=== PATIENT | female | born 1990 | race Caucasian/White ===

== ENCOUNTER 2017-08-15 12:01 | Emergency (ER) | payer OTHER | END 2017-08-15 12:34 | disposition home or self-care (01) | LOC: ERS 12:01 | DX: F12.10 Cannabis abuse, uncomplicated (principal); J06.9 Acute upper respiratory infection, unspecified; F41.9 Anxiety disorder, unspecified; F32.9 Major depressive disorder, single episode, unspecified; F17.210 Nicotine dependence, cigarettes, uncomplicated; Z71.6 Tobacco abuse counseling | CPT/HCPCS: 99406 ==

== ENCOUNTER 2020-02-25 21:01 | Emergency (ER) | payer OTHER ==
[2020-02-25 22:33] LABS: Bilirubin Negative (Negative); Blood, Urine Negative (Negative); Clarity Turbid (Clear); Glucose, Urine (Dipstick) Normal (Negative); Ketone, Urine Negative (Negative); Leukocyte 75 Leu/uL (Negative); Nitrite Negative (Negative); Protein, Urine (Dipstick) 20 mg/dL (Neg-Trace); RBC/HPF 0-3 HPF (0-3); Specific Gravity, Urine 1.031 (1.002-1.036); Urobilinogen Normal mg/dL (Less than 2); pH, Urine 5.5 (5.0-9.0)
[2020-02-25 22:34] LABS: Bacteria/HPF 2+ HPF (None Seen)
[2020-02-26 09:06] LABS: SARS-CoV-2 MS2 Positive; SARS-CoV-2 N Gene Negative; SARS-CoV-2 S Gene Negative; SARS-CoV-2 by NAA Not Detected (NotDetected); SARS-CoV-2 orf1ab Negative
== END 2020-02-25 22:54 | disposition home or self-care (01) ==
LOC: ERS 21:01
DX: N39.0 Urinary tract infection, site not specified (principal); Z20.828 Contact with and (suspected) exposure to other viral communicable diseases; F41.9 Anxiety disorder, unspecified; F32.9 Major depressive disorder, single episode, unspecified; F17.210 Nicotine dependence, cigarettes, uncomplicated
CPT/HCPCS: 81003; 81015; 87635; 99283; U0003

== ENCOUNTER 2020-07-13 13:36 | Emergency (ER) | payer OTHER ==
[2020-07-13] MEDS ORDERED: Acetaminophen 500 MG TAB ONE (15:52)
== END 2020-07-13 15:55 | disposition home or self-care (01) ==
LOC: ERS 13:36
DX: L55.0 Sunburn of first degree (principal); F17.210 Nicotine dependence, cigarettes, uncomplicated
CPT/HCPCS: 99281

== ENCOUNTER 2021-06-17 13:13 | Emergency (ER) | payer OTHER ==
[2021-06-17 13:52] LABS: #Basophils 0.1 thou/uL (0.0-0.2); #Eosinphils 0.2 thou/uL (0.0-0.7); #Lymphocytes 2.3 thou/uL (1.20-3.40); #Monocytes 0.4 thou/uL (0.11-0.59); #Neutrophils 3.1 thou/uL (1.40-6.50); %Basophils 1.4 % (0.0-1.0); %Eosinophils 3.8 % (0.0-10.0); %Lymphocytes 36.7 % (21.0-51.0); %Monocytes 7.2 % (0.0-10.0); %Neutrophils 50.9 % (42.0-75.0); Mean Corpuscular HGB CONC 34.3 g/dL (32.0-36.0); Mean Corpuscular Hemoglobin 32.9 pg (27.0-31.0); Mean Platelet Volume 8.1 fL (7.4-10.4); Platelet Count 253 thou/uL (130-400); RBC Distribution Width 10.9 % (11.5-14.5); Red Blood Cell (RBC) Count 3.64 mill/uL (4.20-5.40); White Blood Cell (WBC) Count 6.1 thou/uL (4.8-10.8)
[2021-06-17 14:18] LABS: ALT (SGPT) 14 U/L (8-55); AST (SGOT) 15 U/L (5-34); Albumin 4.1 g/dL (3.5-5.0); Alkaline Phosphatase 69 U/L (40-110); Anion Gap 15 mmol/L (10-20); BUN (Urea Nitrogen) 10 mg/dL (7.0-18.7); Bilirubin, Total 0.5 mg/dL (0.2-1.2); Calc. Creatinine Clearance 0 mL/min (70-130); Calcium 9.1 mg/dL (7.8-10.44); Carbon Dioxide 20 mmol/L (22-29); Chloride 107 mmol/L (98-107); Globulin 2.8 g/dL (2.4-3.5); Glucose 110 mg/dL (70-105); Potassium 3.8 mmol/L (3.5-5.1); Protein, Total 6.9 g/dL (6.0-8.3); Sodium 138 mmol/L (136-145)
[2021-06-17] MEDS ORDERED: Ketorolac Tromethamine 30 MG/ML VIAL ONE ×2 (15:10→17:25)
== END 2021-06-17 17:41 | disposition short-term general hospital (02) ==
LOC: ERS 13:13
DX: O26.899 Other specified pregnancy related conditions, unspecified trimester (principal); R10.30 Lower abdominal pain, unspecified; O99.330 Smoking (tobacco) complicating pregnancy, unspecified trimester; F17.210 Nicotine dependence, cigarettes, uncomplicated; Z3A.00 Weeks of gestation of pregnancy not specified
CPT/HCPCS: 74177; 80053; 84702; 85025; 96374; 96376; J1885

== ENCOUNTER 2022-06-08 22:56 | Emergency (ER) | payer OTHER | END 2022-06-09 00:55 | disposition home or self-care (01) | LOC: ERS 22:56 | DX: K02.9 Dental caries, unspecified (principal); F17.290 Nicotine dependence, other tobacco product, uncomplicated | CPT/HCPCS: 99282 ==

== ENCOUNTER 2022-08-14 02:47 | Observation (INO) | payer OTHER ==
[2022-08-14 03:29] LABS: #Basophils 0.1 thou/uL (0.0-0.2); #Eosinphils 0.5 thou/uL (0.0-0.7); #Monocytes 0.5 thou/uL (0.11-0.59); %Basophils 0.7 % (0.0-1.0); %Eosinophils 6.7 % (0.0-10.0); %Lymphocytes 44.9 % (21.0-51.0); %Neutrophils 40.6 % (42.0-75.0); Hemoglobin 11.7 g/dL (12.0-16.0); Mean Corpuscular HGB CONC 32.5 g/dL (32.0-36.0); Mean Corpuscular Hemoglobin 30.1 pg (27.0-31.0); Mean Corpuscular Volume 92.5 fl (78.0-98.0); Mean Platelet Volume 10.8 fL (7.4-10.4); Platelet Count 288 10x3/uL (130-400); RBC Distribution Width 11.9 % (11.5-14.5); Red Blood Cell (RBC) Count 3.89 mill/uL (4.20-5.40); White Blood Cell (WBC) Count 7.3 10x3/uL (4.8-10.8)
[2022-08-14 03:44] LABS: INR-International Normal Ratio 0.9; PTT 34.2 sec (22.9-36.1); Prothrombin Time 12.3 sec (12.0-14.7)
[2022-08-14] MEDS ORDERED: Aspirin Chewable 81 MG TAB ONE (03:46)
[2022-08-14 03:53] LABS: ALT (SGPT) 9 U/L (8-55); AST (SGOT) 12 U/L (5-34); Albumin 4.1 g/dL (3.5-5.0); Alkaline Phosphatase 83 U/L (40-110); Anion Gap 13 mmol/L (10-20); BUN (Urea Nitrogen) 15 mg/dL (7.0-18.7); Bilirubin, Total 0.3 mg/dL (0.2-1.2); CK (CPK) 82 U/L (29-168); Calc. Creatinine Clearance 0 mL/min (70-130); Calcium 9.2 mg/dL (7.8-10.44); Carbon Dioxide 22 mmol/L (22-29); Chloride 106 mmol/L (98-107); Estimated GFR 97; Globulin 2.8 g/dL (2.4-3.5); Glucose 98 mg/dL (70-105); Potassium 3.2 mmol/L (3.5-5.1); Protein, Total 6.9 g/dL (6.0-8.3); Sodium 138 mmol/L (136-145)
[2022-08-14 04:30] LABS: Bacteria/HPF None Seen HPF (None Seen); Bilirubin Negative (Negative); Blood, Urine Negative (Negative); Clarity Clear (Clear); Glucose, Urine (Dipstick) Normal (Negative); Ketone, Urine Negative (Negative); Leukocyte 75 Leu/uL (Negative); Nitrite Negative (Negative); Protein, Urine (Dipstick) Negative (Neg-Trace); Urobilinogen Normal mg/dL (Less than 2); pH, Urine 5.5 (5.0-9.0)
[2022-08-14 04:31] LABS: Specific Gravity, Urine 1.055 (1.002-1.036)
[2022-08-14 04:33] LABS: Amphetamine Not Detected (NotDetected); Barbiturates Screen Not Detected (NotDetected); Benzodiazepine Screen Not Detected (NotDetected); Cocaine Metabolite Screen Detected (NotDetected); Methadone Not Detected (NotDetected); Methamphetamine Not Detected (NotDetected); Opiate Screen Detected (NotDetected); Oxycodone Screen Not Detected (NotDetected); Phencyclidine (PCP) Not Detected (NotDetected); THC/Cannabinoid Screen Detected (NotDetected); Tricyclic Screen Not Detected (NotDetected)
[2022-08-14] MEDS ORDERED: Ondansetron PF 4 MG/2 ML Vial IVP PRN (05:00)
[2022-08-14] MEDS ORDERED: Ondansetron ODT 4 MG TAB SL PRN (05:00)
[2022-08-14 05:01] LABS: Acetaminophen Less than 10.0 mcg/mL (10.0-30.0); Alcohol Less than 10 mg/dL (Less than 10); Salicylate Less than 8.0 mg/dL (15.0-30.0)
[2022-08-14 06:19] VITALS: BMI 32.0
[2022-08-14] MEDS ORDERED: Potassium Chloride 20 MEQ TAB PO SCH ×2 (07:00→13:45)
[2022-08-14 07:47] LABS: Hemoglobin A1c 4.8 % (4.0-6.0)
[2022-08-14] MEDS ORDERED: Mag-Al Plus 1200 MG/1200 MG/120 MG/30 ML UDCUP PO SCH (08:00)
[2022-08-14] MEDS ORDERED: Potassium Bicarbonate/Cit Ac 20 MEQ TAB PO SCH (08:00)
[2022-08-14 08:19] LABS: Cardiac Risk 2.4 (Less than 4.5); Cholesterol 142 mg/dl (< 200 Desired); HDL Cholesterol 60 mg/dL (>60 Neg Risk); LDL Cholesterol, Calculated 69 mg/dL; Magnesium 1.9 mg/dL (1.6-2.6); Triglycerides 63 mg/dL (Less than 150)
[2022-08-14] MEDS ORDERED: Iopamidol-370 76% 500 ML MDV (1 ML CHARGE) ONE (08:54)
[2022-08-14] MEDS ORDERED: Aspirin 325 MG TAB PO SCH (09:00)
[2022-08-14 17:07] LABS: Prothrombin Time 13.6 sec (12.0-14.7)
[2022-08-14 17:09] LABS: D-Dimer Test 0.37 *mcg/mL (0.27-0.43)
[2022-08-15 05:26] LABS: #Eosinphils 0.4 thou/uL (0.0-0.7); #Monocytes 0.6 thou/uL (0.11-0.59); #Neutrophils 3.8 thou/uL (1.40-6.50); %Basophils 0.5 % (0.0-1.0); %Eosinophils 5.5 % (0.0-10.0); %Monocytes 8.2 % (0.0-10.0); %Neutrophils 49.7 % (42.0-75.0); Mean Corpuscular HGB CONC 32.7 g/dL (32.0-36.0); Mean Corpuscular Hemoglobin 30.9 pg (27.0-31.0); Mean Corpuscular Volume 94.6 fl (78.0-98.0); Platelet Count 285 10x3/uL (130-400); RBC Distribution Width 11.9 % (11.5-14.5); Red Blood Cell (RBC) Count 3.88 mill/uL (4.20-5.40); White Blood Cell (WBC) Count 7.6 10x3/uL (4.8-10.8)
[2022-08-15 05:59] LABS: Anion Gap 12 mmol/L (10-20); BUN (Urea Nitrogen) 16 mg/dL (7.0-18.7); Calc. Creatinine Clearance 124 mL/min (70-130); Calcium 9.5 mg/dL (7.8-10.44); Carbon Dioxide 22 mmol/L (22-29); Chloride 106 mmol/L (98-107); Estimated GFR 93; Glucose 86 mg/dL (70-105); Magnesium 2.2 mg/dL (1.6-2.6); Potassium 3.9 mmol/L (3.5-5.1); Sodium 136 mmol/L (136-145)
[2022-08-15] MEDS: Acetaminophen 325 MG TAB PO PRN ×2 (06:07→22:17)
[2022-08-15] MEDS ORDERED: Aspirin 81 mg Enteric Coated Tablet PO SCH (10:15)
[2022-08-15] MEDS ORDERED: cefTRIAXone\\ROCEPHIN 1 GM in Sodium Chloride 0.9% 100 ML IVPB SCH (13:00)
[2022-08-16] MEDS ORDERED: Aspirin 81 mg Enteric Coated Tablet PO SCH (09:00)
[2022-08-16 12:31] VITALS: BP 116/82; TEMP 98.2
[2022-08-16 16:44] LABS: HEX PHOS LA Tube 1 48.6 SEC; HEX PHOS LA Tube 2 47.2 SEC; Hexagonal Phospholipid Neut 1.4 SEC (0-8.0)
[2022-08-17 14:09] LABS: Cardiolipin IgA Ab 3.9 APL-U/mL (<14 Negative); Cardiolipin IgG Ab 0.8 GPL-U/mL (<10 Negative); EliA APS New Method **** NEW METHOD ****
== END 2022-08-16 12:25 | disposition home or self-care (01) ==
LOC: ERS 02:47 → EEVIPCON 04:20 → NEURO 04:20
PROVIDERS: ADMIT Family Medicine; ATTEND Family Medicine
DX: G45.9 Transient cerebral ischemic attack, unspecified (principal); F14.10 Cocaine abuse, uncomplicated; F17.290 Nicotine dependence, other tobacco product, uncomplicated; E87.6 Hypokalemia; M47.812 Spondylosis without myelopathy or radiculopathy, cervical region; N39.0 Urinary tract infection, site not specified; B96.1 Klebsiella pneumoniae [K. pneumoniae] as the cause of diseases classified elsewhere
CPT/HCPCS: 36415; 36416; 70450; 70496; 70498; 70551; 71045; 72141; 80048; 80053; 80061; 80306; 80307; 81003; 81015; 82550; 83036; 83090; 83735; 84443; 84484; 85025; 85300; 85303; 85305; 85307; 85379; 85598; 85610; 85730; 86147; 87086; 87186; 93005; 93306; 96365; G0378; J0696; J3490; Q9967

== ENCOUNTER 2023-10-16 20:37 | Emergency (ER) | payer SELFPAY ==
[2023-10-16] MEDS ORDERED: Ketorolac Tromethamine 30 MG (1 mL) VIAL ONE (21:39)
== END 2023-10-16 22:03 | disposition home or self-care (01) ==
LOC: ERS 20:37
DX: K08.89 Other specified disorders of teeth and supporting structures (principal); F17.290 Nicotine dependence, other tobacco product, uncomplicated
CPT/HCPCS: 96372; 99282; J1885

== ENCOUNTER 2023-10-26 18:26 | Emergency (ER) | payer SELFPAY ==
[2023-10-26 19:34] LABS: #Basophils 0.03 10x3/uL (0.0-0.2); %Basophils 0.5 % (0.0-1.0); %Eosinophils 5.8 % (0.0-10.0); %Lymphocytes 39.4 % (21.0-51.0); %Monocytes 7.9 % (0.0-10.0); %Neutrophils 46.2 % (42.0-75.0); Hematocrit 34.3 % (36.0-47.0); Hemoglobin 11.9 g/dL (12.0-16.0); Mean Corpuscular HGB CONC 34.7 g/dL (32.0-36.0); Mean Corpuscular Volume 92.2 fL (78.0-98.0); Mean Platelet Volume 10.9 fL (7.4-10.4); Platelet Count 251 10x3/uL (130-400); RBC Distribution Width 11.9 % (11.5-14.5); Red Blood Cell (RBC) Count 3.72 mill/uL (4.20-5.40)
[2023-10-26 19:55] LABS: ALT (SGPT) 29 U/L (8-55); AST (SGOT) 33 U/L (5-34); Albumin 3.6 g/dL (3.5-5.0); Alkaline Phosphatase 77 U/L (40-110); Anion Gap 13 mmol/L (10-20); BUN (Urea Nitrogen) 19 mg/dL (7.0-18.7); Bilirubin, Total 0.3 mg/dL (0.2-1.2); Calc. Creatinine Clearance 0 mL/min (70-130); Calcium 9.4 mg/dL (7.8-10.44); Carbon Dioxide 25 mmol/L (22-29); Chloride 105 mmol/L (98-107); Estimated GFR 104; Globulin 2.9 g/dL (2.4-3.5); Glucose 95 mg/dL (70-105); Potassium 3.7 mmol/L (3.5-5.1); Protein, Total 6.5 g/dL (6.0-8.3); Sodium 139 mmol/L (136-145)
[2023-10-26 19:59] LABS: Troponin I Less than 0.010 ng/mL (< 0.028)
== END 2023-10-26 20:22 | disposition home or self-care (01) ==
LOC: ERS 18:26
DX: R07.9 Chest pain, unspecified (principal); F19.10 Other psychoactive substance abuse, uncomplicated; F14.10 Cocaine abuse, uncomplicated; F17.290 Nicotine dependence, other tobacco product, uncomplicated
CPT/HCPCS: 71045; 80053; 84484; 85025; 93005